=== PATIENT | female | born 1955 | race Caucasian/White ===

== ENCOUNTER 2021-11-21 12:37 | Emergency (ER) | payer MEDICARE, OTHER ==
[2021-11-21] MEDS ORDERED: Lidocaine 2% PF 5 ML VIAL FS ONE (12:38)
[2021-11-21] MEDS ORDERED: Boostrix 0.5 ML (Tdap) VIAL ONE (13:55)
[2021-11-21] MEDS ORDERED: Bacitracin 1 PK ONE (13:55)
[2021-11-21] MEDS ORDERED: traMADol HCl 50 MG TAB ONE (14:04)
== END 2021-11-21 14:14 | disposition home or self-care (01) ==
LOC: BURERS 12:37
DX: S61.412A Laceration without foreign body of left hand, initial encounter (principal); I10 Essential (primary) hypertension; Z23 Encounter for immunization; Z87.891 Personal history of nicotine dependence; W25.XXXA Contact with sharp glass, initial encounter
CPT/HCPCS: 12042; 90471; 90715; J2001